=== PATIENT | female | born 1950 | race Asian ===

== ENCOUNTER 2017-05-19 12:53 | Emergency (ER) | payer OTHER ==
[2017-05-19 13:18] VITALS: BP 146/90; PULSE 87; TEMP 98.2; BMI 25.6
--- NOTE | 2017-05-19 13:23 | PDOC ---
History of Present Illness - General Chief Complaint: Choking Sensation Stated Complaint: PT WAS EATING AN ALMOND FELT STUCK IN THROAT Time Seen by Provider: 05/19/17 13:06 History Source: Patient - History of Present Illness Initial Comments: 67 year old female with PMH of HLD presenting with pain in her throat shortly after chocking on some crushed almonds 1 hour prior. She was able to get the almond out of her throat but has still had a sensation of something stuck in her throat with some slight pain. Denies any difficulty breathing and has been able to swallow and eat without difficulty since then. 05/19/17 13:29 Past History - Past Medical History Allergies/Adverse Reactions: Allergies Allergy/AdvReac Type Severity Reaction Status Date / Time No Known Allergies Allergy Unverified 05/19/17 12:56 Home Medications: Ambulatory Orders Simvastatin 20 mg PO HS 05/19/17 Hypercholesterolemia: Yes - Suicide/Smoking/Psychosocial Hx Smoking History: Never smoked Hx Alcohol Use: No Drug/Substance Use Hx: No Substance Use Type: None Review of Systems - Review of Systems Constitutional: No: Chills, Diaphoresis, Fever HEENTM: No: Blurred Vision Respiratory: No: Cough, Shortness of Breath, Wheezing Cardiac (ROS): No: Chest Pain ABD/GI: No: Diarrhea, Nausea, Vomiting : No: Burning, Dysuria Integumentary: No: Bruising, Change in Color Neurological: No: Headache *Physical Exam - Vital Signs Last Vital Signs Temp Pulse Resp BP Pulse Ox 98.2 F 87 16 146/90 96 05/19/17 12:55 05/19/17 12:55 05/19/17 12:55 05/19/17 12:55 05/19/17 12:55 - Physical Exam General Appearance: Yes: Nourished, Appropriately Dressed. No: Apparent Distress HEENT: positive: EOMI, YULISSA, Normal ENT Inspection, Normal Voice, Pharynx Normal Neck: positive: Trachea midline, Normal Thyroid, Supple. negative: Tender, Rigid Respiratory/Chest: positive: Lungs Clear, Normal Breath Sounds. negative: Chest Tender, Respiratory Distress, Accessory Muscle Use Cardiovascular: positive: Regular Rhythm, Regular Rate, S1, S2. negative: Edema , Murmur Gastrointestinal/Abdominal: positive: Normal Bowel Sounds, Flat, Soft. negative : Tender Musculoskeletal: positive: Normal Inspection Extremity: positive: Normal Inspection, Normal Range of Motion Integumentary: positive: Normal Color, Dry, Warm Neurologic: positive: Fully Oriented, Alert, Normal Mood/Affect, Normal Response , Motor Strength 5/5 Medical Decision Making - Medical Decision Making 67 year old female presenting an hour after choking on an almond. Only admits to some mild pain with swallowing but no actual difficulty. Her vital signs were stable and she overall appeared well without any respiratory physical exam abnormality. We asked the patient to drink some water and she admitted that it improved her symptoms. she did admit to some continued discomfort, however, so we asked her to gargle some water which further improved her symptoms. She did not feel that she needed any medication. She was discharged with instructions to follow up with ENT if her symptoms persisted. 05/19/17 17:58 *DC/Admit/Observation/Transfer Diagnosis at time of Disposition: Globus sensation - Discharge Dispostion Disposition: HOME Condition at time of disposition: Stable Admit: No - Referrals Referrals: Danny Torrez [Non Staff, Medical] - - Patient Instructions Additional Instructions: We looked down your throat and weren't able to find any almonds. You could have a small piece of an almond at the lower part of your throat that we couldn't see but it should eventually go away. It is also possible that you don't have anything in your throat and you just have some irritation from the almond that was there previously. Please use Motrin for the pain. If you still have the feeling of something in your throat in a few days then please make an appointment with the Ear Nose and throat doctor to have a further evaluation. - Post Discharge Activity Forms/Work/School Notes: Back to Work
[2017-05-19] MEDS ORDERED: IBUPROFEN 400 MG TABLET (FP) PO ONE (13:52)
[2017-05-19] MEDS ORDERED: IBUPROFEN 100 MG/5 ML UNIT DOSE CUPS ONE (13:58)
--- NOTE | 2017-05-19 14:01 | PDOC ---
Attending Attestation - Resident Resident Name: ChristineRenatonolannatali - ED Attending Attestation I have performed the following: I have examined & evaluated the patient, The case was reviewed & discussed with the resident, I agree w/resident's findings & plan, Exceptions are as noted - HPI HPI: 05/19/17 13:56 67-year-old female with no history of recurring swallowing issues or obstructions presents with foreign body sensation to left throat after she was eating crushed almonds and choked. No LOC or vomiting, cleared the food particles and now has no difficulty breathing/talking/swallowing, but does have discomfort to her L throat. - Physicial Exam PE: 05/19/17 13:58 Vital signs normal. Well-appearing, speaking full sentences with clear voice, no stridor Oropharynx is clear to visualization Lungs are clear Heart is regular Skin is clear, no urticaria - Medical Decision Making 05/19/17 13:58 67-year-old female status post choking episode on crushed almonds, now with patent airway but irritation to left throat. No visualized foreign body, no evidence of obstruction. Question loose food particles, question throat irritation. trial of motrin trial of gurgling to dislodge any small food particles can f/u ENT if sxs persist
== END 2017-05-19 14:05 | disposition home or self-care (01) ==
LOC: FER 12:53
DX: R09.89 Other specified symptoms and signs involving the circulatory and respiratory systems (principal)
CPT/HCPCS: 99282-25